=== PATIENT | female | born 1995 | race Caucasian/White ===

== ENCOUNTER 2021-11-23 05:17 | Emergency (ER) | payer OTHER ==
[~2021-11-23 05:17] MED LIST: ASCORBIC ACID500 MG PO; BACTRIM DS TAB1 EACH PO; CLARITIN10 MG PO; ETODOLAC500 MG PO; IBUPROFEN800 MG PO; IRON325 M1 PO; KEFLEX250 MG PO; PERCOCET 5-3251 EACH PO
== END 2021-11-23 08:32 | disposition home or self-care (01) ==
LOC: FER 05:17
DX: R51.9 Headache, unspecified (principal); F17.200 Nicotine dependence, unspecified, uncomplicated; Z91.040 Latex allergy status; Z28.310 Unvaccinated for COVID-19
CPT/HCPCS: 70450; 71045; 74018; J0780; J1200; J1885; J7030